=== PATIENT | female | born 2000 | race Caucasian/White ===

== ENCOUNTER 2024-08-21 23:53 | Emergency (ER) | payer MEDICAID, SELFPAY ==
--- OUTSIDE RECORDS SUMMARY | 2024-08-10 20:32 | XMS_ITS | Encounter Summary ---
Author Organization [facility] tem Address [id number] [address] [place] [address] Care Team Providers Care Industrial Management Teacher Name Role Phone Ruth Cody APRN-FUSING LINE INSPECTOR Primary Care Provider + Reason for Visit * Reason Comments Chest Pain Encounter Details Date Type Department Care Team ([facility] st Contact Info) Description 08/10/2024 8:32 PM EDT - 08/10/2024 10:17 PM EDT Emergency [facility] - Emergency [address] [place] [address] Stormy Solano, DO [address] [place] [address] Chest pain, unspecified type (Primary Dx) Discharge Disposition: Home Social History Tobacco Use Types Packs/Day Years Used Date Smoking Tobacco: Never Smokeless Tobacco: Never Alcohol Use Standard Drinks/Week Comments No 0 (1 standard drink = 0.6 oz pur e alcohol) [facility] Utilities Answer Date Recorded In the past 12 months has th e [employer], gas, oil, or water [employer] threatened to shut off services in your home? No 06/28/2024 Overall Financial Resource Strain (CARDIA) Answe r Date Recorded How hard is it for you to pa y for the very basics like food, housing, medical care, and heating? Not hard at all 12/05/2023 PHQ-2 Answer Date Recorded Total Score 0 02/07/2024 PRAPARE - Transportation Answer Date Re corded In the past 12 months, has l ack of transportation kept you from medical appointments or from getting medications? No 06/18 In the past 12 months, has l ack of transportation kept you from meetings, work, or from getting things needed for daily living? No 06/28/2024 Blanca Depression Scale Answer Date Recorded Blanca Depression Scale Total 9 12/05/2023 The thought of harming myself has occurred to me . Never 12/05/2023 Housing Instability Answer Date Recorde d Are you worried or concerned that in the next two months you may not have stable housing that you own, rent or stay in as a part of a household? No 06/28/2024 Childcare Answer Date Recorded Do problems getting child ca re make it difficult for you to work or study? No 12/05/2023 Employment Answer Date Recorded Employment Unknown 07/30/2018 Hunger Screening Answer Date Recorded Within the past 12 months we worried whether our food would run out before we got money to buy more. Never True 07/12/2024 Within the past 12 months th e food we bought just didn't last and we didn't have money to get more. Never True 07/12/2024 Purpose - Life Answer Date Recorded Purpose and direction in life Unknown Comments No Sex and Gender Information Value Date Recorded Sex Assigned at Female 03/27/2023 1:37 PM EST Legal Sex Female 12:02 PM EDT Gender Identity Female 03/27/2023 1:37 PM EST Sexual Orientation Not on file documented as of this encounter Last Filed Vital Signs Vital Sign Reading Time Taken Comments Blood Pressure 104/67 08/10/2024 9:45 PM EDT Pulse 85 08/10/2024 9:45 PM EDT Temperature 37.1 C (98.7 F) 08/10/2024 8:36 PM EDT Respiratory Rate 12 08/10/2024 9:45 PM EDT Oxygen Saturation 98% 08/10/2024 9:45 PM EDT Inhaled Oxygen Concentration - - Weight 86.2 kg (190 lb) 08/10/2024 8:36 PM EDT Height 162.6 cm (5' 4 ) 08/10/2024 8:36 PM EDT Body Mass Index 32.61 08/10/2024 8:36 PM EDT documented in this encounter Discharge Instructions * Discharge Instructions* Jessie Christopher APRN-FUSING LINE INSPECTOR - 08/10/2024 9:58 PM EDT Tylenol or ibuprofen for pain Follow-up with primary care provider To ER immediately for new worse or worrisome concerns * Attachments The following attachments cannot be sent through Care Everywhere. * Chest pain in adults – ED discharge instructions (Czech) * Chest pain (Czech) documented in this encounter Medications at Time of Discharge acetaminophen (TYLENOL EXTRA STRENGTH) 500 mg tablet Take 2 tablets (1,000 mg total) by mouth every 6 (six) hours as needed for pain. 30 tablet 03/06/2023 documented as of this encounter ED Notes * Stormy Solano DO - 08/10/2024 9:31 PM EDT Images from the original note were not included. [facility] Pt Name: Belem Jeter Birthdate: 2000 Chief Complaint: Chief Complaint Patient presents with Chest Pain History of Present Illness: Patient here for evaluation of chest pain. This has been going on for the last 2 days. It started on the left anterior chest but it was moved to the right in his has been present for at least 2 days.She describes it as a sharp pressure pain it has been coming and going. She feels it radiating to her shoulder blade and into her right ribs. Nothing seems to make it better or worse. She does endorse some shortness of breath. No dizziness or lightheadedness. No nausea or vomiting. No numbness tingling or weakness. She denies any possibility of . She was not on control. She did have a miscarriage about a month ago in his following up with OB regarding this. No previous history ofPE or DVT. No recent travel or surgeries. She denies any major medical problems Past Medical History: Past Medical History: Diagnosis Date ADHD (attention deficit hyperactivity disorder) Anemia Anxiety Depression Gestational hypertension Preeclampsia Visual impairment Past Surgical History: Past Surgical History: Procedure Laterality Date ANKLE SURGERY Left torn ligament, unsure if hardware in place COLONOSCOPY Family History: Family History Problem Relation Age of Onset Drug abuse Mother Hearing loss Mother Breast cancer Neg Hx Cancer Neg Hx Colon cancer Neg Hx Diabetes Neg Hx Hypertension Neg Hx Ovarian cancer Neg Hx Stroke Neg Hx Social History: Social History Socioeconomic History Marital status: Significant Other Tobacco Use Smoking status: Never Smokeless tobacco: Never Vaping Use Vaping status: Never Used Substance and Sexual Activity Alcohol use: No Drug use: No Sexual activity: Not Currently Partners: Male control/protection: None Social Drivers of Health Financial Resource Strain: Low Risk (12/05/2023) Overall Financial Resource Strain (CARDIA) Difficulty of Paying Living Expenses: Not hard at all Food Insecurity: No Food Insecurity (07/12/2024) Hunger Screening Food Insecurity - Worry: Never True Food Insecurity - Inability: Never True Transportation Needs: No Transportation Needs (06/28/2024) PRAPARE - Transportation Lack of Transportation (Medical): No Lack of Transportation (Non-Medical): No Interpersonal Safety: Not At Risk (06/28/2024) Humiliation, Afraid, Rape, and Kick questionnaire Fear of Current or Ex-Partner: No Emotionally Abused: No Physically Abused: No Sexually Abused: No Housing Instability: Low Risk (06/28/2024) Housing Instability Housing Instability: No Review of Systems: Review of Systems Physical Exam: ED Triage Vitals [08/10/242035] Temp Heart Rate Resp BP SpO2 37.1 °C (98.7 °F) 70 20 121/62 100 % Temp src Heart Rate Source Patient Position BP Location FiO2 (%) -- -- -- -- -- Vitals: 08/10/24203508/10/24212908/10/242144 BP: 121/62 105/74 104/67 Temp: 37.1 °C (98.7 °F) Pulse: 70 82 85 Resp: 20 10 12 SpO2: 100% 98% 98% Height: 162.6 cm (5' 4 ) Weight: 86.2 kg (190 lb) 98 Physical Exam Vitals reviewed. HENT: Head: Normocephalic and atraumatic. Eyes: Conjunctiva/sclera: Conjunctivae normal. Cardiovascular: Rate and Rhythm: Normal rate. Pulmonary: Effort: Pulmonary effort is normal. Breath sounds: Normal breath sounds. Comments: Tenderness to the sternal and right anterior chest wall. No rash Chest: Chest wall: Tenderness present. Abdominal: General: There is no distension. Palpations: Abdomen is soft. Musculoskeletal: General: Normal range of motion. Cervical back: Normal range of motion and neck supple. Right lower leg: No edema. Left lower leg: No edema. Skin: General: Skin is warm and dry. Neurological: General: No focal deficit present. Mental Status: She is alert and oriented to person, place, and time. GCS: GCS eye subscore is 4. GCS verbal subscore is 5. GCS motor subscore is 6. Procedure: Procedures Re-evaluation: Re-Evaluation Medical Decision Making Patient here for complaints of chest pain for the past couple of days. She was reproducible chest wall tenderness. Normal vital signs no hypoxia tachycardia tachypnea. D-dimer troponin all within normal limits. Chest x-ray shows no acute process. Patient was advised on [id number] medications for pain. I advised her to follow up with the primary doctor but return for new worse or worrisome concerns. Patient verbalized understanding in his agreeable to plan of care Amount and/or Complexity of Data Reviewed Labs: ordered. Details: Labs notable for: dimer <150 Radiology: ordered. Details: Imaging was independently viewed and is notable for no pneumonia. However, pending official radiologist read. ECG/medicine tests: ordered. Risk OTC drugs. Prescription drug management. ED Course: ED Course as of 08/15/24 1131 SatAug 10, [id number] I updated the patient and her family member at the bedside about her test results. She had mention a possible outpatient gallbladder ultrasound. She reports that she does not have a primary careprovider's so she was not sure how she would get the results. I told her I would be happy to write her an ultrasound but she plans to follow-up with her rug washer. She prefers to see if her rug washer will order the ultrasound for her. I advised her to follow-up with primary care provider but return for new worse or worrisome concerns in the meantime [RK] ED Course User Index [RK] Jessie Christopher APRN-FUSING LINE INSPECTOR Clinical Impressions as of 08/15/24 1131 Chest pain, unspecified type . ED Disposition ED Disposition Discharge Date/Time SatAug 10, 2024 10:10 PM Comment At the time of discharge, the plan has been discussed with the patient regarding the diagnosis and prognosis. All questions have been answered. Verbal discharge instructions were discussed with the patient. The patient has been advised to follow up w ith their Primary Care Provider as needed. The patient was also instructed to return to the ED if their symptoms change, worsen, new symptoms arise or if they have any additional concerns. Shared/Split Visit 21:54 EDT John Alcantar), scribed for and in the presence of: Dr. Solano who performed the above service. IDr. Solano personally performed a [id number] diagnostic evaluation on this patient. I personally made and approved the management plan for this patient and take responsibility for the patient management. Additional Notes/Findings: Belem Jeter is a 24 y.o. female presenting to the ED for chief complaint of HPI: Physical exam findings as follows: Constitutional: Awake and alert; no acute distress HENT: Normocephalic and atraumatic; no congestion, throat clear and non- erythematous; external earsnormal Eyes: Conjunctiva unremarkable; EOMI, PERRLA Cardiovascular: Heart rate regular; normal cardiac sounds Pulmonary: Easy work of breathing, speaking in full sentences; clear to auscultation bilaterally Abdominal: Flat and non-distended; normal bowel sounds; no tenderness to palpation Skin: Warm and dry; <2 sec cap refill Musculoskeletal: Moving all extremities spontaneously; 5/5 strength bilaterally Neuro: GCS 15; No focal deficits; no sensory deficits Please note that portions of this note were completed with a voice recognition program. Efforts were made to edit the dictations but occasionally words are mis-transcribed. GIANNA Jimenez 08/10/243 GIANNA Jimenez 08/10/24 215 John Hogan 08/10/24 215 GIANNA Jimenez 08/10/24 221 GIANNA Jimenez 08/10/24 221 Stormy Solano, 08/15/24 1131 * Tiffany Vernon RN - 08/10/2024 8:34 PM EDT Chest pain x2 days documented in this encounter Plan of Treatment Upcoming Encounters Date Type Department Care Team (Late st Contact Info) Description 10/01/2024 1:00 PM EDT Office Visit [facility] - Family Medicine [address] [place] [address] Toña Jackson APRN-FUSING LINE INSPECTOR [address] [place] [address] documented as of this encounter Procedures Procedure Name Priority Date/Time Associated Diagnosis Comments TROP I, HIGH SENSITIVITY 1 HOUR STAT 08/10/2024 10:07 PM EDT XR CHEST 1 VW STAT 08/10/2024 9:20 PM EDT TROPONIN I, HIGH SENSITIVITY 0 HOUR STAT 08/10/2024 9:00 PM EDT TROPONIN I, HIGH SENSITIVITY 0 HOUR STAT 08/10/2024 9:00 PM EDT CBC WITH AUTO DIFFERENTIAL STAT 08/10/2024 9:00 PM EDT D-DIMER STAT 08/10/2024 9:00 PM EDT LIPASE STAT 08/10/2024 9:00 PM EDT COMPREHENSIVE METABOLIC PANEL STAT 08/10/2024 9:00 PM EDT ECG 12-LEAD STAT 08/10/2024 8:38 PM EDT documented in this encounter Results * Troponin I, High Sensitivity 1 Hour (08/10/2024 10:07 PM EDT) TROPONIN I, HIGH SENSITIVITY <2 <16 ng/L 08/10/2024 10:46 PM EDT [facility] Blood Venous blood / Unknown 08/10/2024 10:07 PM EDT 08/10/2024 10:09 PM EDT Jessie Christopher APRN-FUSING LINE INSPECTOR LAB BLOOD ORDERABLES Final Result [facility] [address] [place] [address], [place] * X-ray chest 1 view (08/10/2024 9:20 PM EDT) Anatomical Region Laterality Modality Body, Chest N/A Computed Radiogr aphy 08/10/2024 9:27 PM EDT Narrative 08/10/2024 9:28 PM EDT STUDY: XR CHEST 1 VW INDICATION: chest pain. COMPARISON: 12/03/2023 FINDINGS/IMPRESSION: * No acute cardiopulmonary process, by radiograph. Finalized by Chauncey Velasquez on 08/10/2024 9:28 PM Procedure Note Chauncey Velasquez MD - 08/10/2024 STUDY: XR CHEST 1 VW INDICATION: chest pain. COMPARISON: 12/03/2023 FINDINGS/IMPRESSION: * No acute cardiopulmonary process, by radiograph. Finalized by Chauncey Velasquez on 08/10/2024 9:28 PM Jessie Christopher APRN-FUSING LINE INSPECTOR IMG DIAGNOSTIC IMAGIN G ORDERABLES Final Result * Troponin I, High Sensitivity 0 Hour (08/10/2024 9:00 PM EDT) TROPONIN I, HIGH SENSITIVITY <2 <16 ng/L 08/10/2024 10:02 PM EDT [facility] Blood Venous blood / Unknown 08/10/2024 9:00 PM EDT 08/10/2024 9:29 PM EDT Jessie Christopher MUD WORKER-FUSING LINE INSPECTOR LAB BLOOD ORDERABLES Final Result Performing Organization Address [facility] Co de Phone Number [address] [place] [address], [place] * D-Dimer (08/10/2024 9:00 PM EDT) D DIMER <150 1 - 255 ug/mL 08/10/2024 9:50 PM EDT [facility] Comment:Results <255 ng/mL D DU: The presensence of a VTE can safely be excluded with a negative D-Dimer result and Wells score. A negative result doesn't exclude the possibility of DIC. The test should be repeated along with other diagnostic tests if the patient's symptoms persist or worsen. Blood Venous blood / Unknown 08/10/2024 9:00 PM EDT 08/10/2024 9:29 PM EDT Jessie Christopher APRN-[facility] LAB BLOOD ORDERABLES Final Result Performing Organization Address [facility] Co de Phone Number [address] [place] [address], [place] * Lipase (08/10/2024 9:00 PM EDT) LIPASE 38 17 - 40 U/L 08/10/2024 10:15 PM EDT [facility] Blood Venous blood / Unknown 08/10/2024 9:00 PM EDT 08/10/2024 9:29 PM EDT Jessie Christopher MUD WORKER-[facility] LAB BLOOD ORDERABLES Final Result Performing Organization Address City/[facility] Co de Phone Number [address] [place] [address], [place] * (ABNORMAL) Comprehensive metabolic panel (08/10/2024 9:00 PM EDT) SODIUM 140 134 - 146 mmol/L 08/10/2024 9:53 PM EDT [facility] POTASSIUM 3.4(L) 3.5 - 5.0 mmol/L 08/10/2024 9:53 PM EDT [facility] CHLORIDE 105 98 - 109 mmol/L 08/10/2024 9:53 PM EDT [facility] CARBON DIOXIDE 26 22 - 32 mmol/L 08/10/2024 9:53 PM EDT [facility] ANION GAP 9 5 - 15 mmol/L 08/10/2024 9:53 PM EDT [facility] BLOOD UREA NITROGEN 14 5 - 23 mg/dL 08/10/2024 9:53 PM EDT [facility] CREATININE 0.62 0.40 - 1.00 mg/dL 08/10/2024 9:53 PM EDT [facility] Comment:METHOD TRACEABLE TO IDMS STANDARD GLUCOSE 101(H) 65 - 99 mg/dL 08/10/2024 9:53 PM EDT [facility] CALCIUM 9.2 8.5 - 10.5 mg/dL 08/10/2024 9:53 PM EDT [facility] TOTAL PROTEIN 7.0 6.0 - 8.0 g/dL 08/10/2024 9:53 PM EDT [facility] ALBUMIN 4.0 3.2 - 5.3 g/dL 08/10/2024 9:53 PM EDT [facility] ALKALINE PHOSPHATASE 77 39 - 130 U/L 08/10/2024 9:53 PM EDT [facility] AST 16 <=41 U/L 08/10/2024 9:53 PM EDT [facility] ALT 13 <=31 U/L 08/10/2024 9:53 PM EDT [facility] BILIRUBIN,TOTAL 0.5 0.3 - 1.2 mg/dL 08/10/2024 9:53 PM EDT [facility] EGFR Non-Race Dependent >90 >=60 ml/min/1.7 3sq.m 08/10/2024 9:53 PM EDT [facility] Comment: eGFR not reported due to non-numeric value for Creatinine. Reported eGFR is based on the CKD-EPI 2020 equation that does not use a race coefficient. Blood Venous blood / Unknown 08/10/2024 9:00 PM EDT 08/10/2024 9:29 PM EDT us Jessie Christopher MUD WORKER-FUSING LINE INSPECTOR LAB BLOOD ORDERABLES Final Result [facility] [address] [place] [address], * (ABNORMAL) CBC auto differential (08/10/2024 9:00 PM EDT) WBC 7.7 4 - 11 x10E9/L 08/10/2024 9:49 PM EDT [facility] RBC Count 3.72(L) 3.8 - 5.2 X10E12/L 08/10/2024 9:49 PM EDT [facility] Hemoglobin 9.8(L) 11.7 - 15.5 g/dL 08/10/2024 9:49 PM EDT [facility] Hematocrit 29.5(L) 35 - 47 % 08/10/2024 9:49 PM EDT [facility] MCV 79(L) 80 - 100 fL 08/10/2024 9:49 PM EDT [facility] MCH 26.5(L) 27 - 34 pg 08/10/2024 9:49 PM EDT [facility] MCHC 33.3 32 - 36 g/dL 08/10/2024 9:49 PM EDT [facility] RDW 14.8 11.5 - 15 % 08/10/2024 9:49 PM EDT [facility] Platelet Count 331 150 - 450 X10E9/L 08/10/2024 9:49 PM EDT [facility] MPV 7.8 7 - 12 fL 08/10/2024 9:49 PM EDT [facility] Neutrophils % 63.6 % 08/10/2024 9:49 PM EDT [facility] Lymphocytes % 30.0 % 08/10/2024 9:49 PM EDT [facility] Monocytes % 4.7 % 08/10/2024 9:49 PM EDT [facility] Eosinophils % 1.2 % 08/10/2024 9:49 PM EDT [facility] Basophils % 0.5 % 08/10/2024 9:49 PM EDT [facility] Neutrophils Absolute (A) 4.9 1.5 - 6.6 10*3/uL 08/10/2024 9:49 PM EDT [facility] Lymphocytes Absolute 2.3 1.0 - 3.5 10*3/uL 08/10/2024 9:49 PM EDT [facility] Monocytes Absolute 0.4 0.0 - 0.9 10*3/uL 08/10/2024 9:49 PM EDT [facility] Eosinophils Absolute 0.1 0.0 - 0.4 10*3/uL 08/10/2024 9:49 PM EDT [facility] Basophils Absolute 0.0 0.0 - 0.2 10*3/uL 08/10/2024 9:49 PM EDT [facility] Differential Type AUTOMATED DIFFERENTIAL 08/10/2024 9:49 PM EDT [facility] Blood Venous blood / Unknown 08/10/2024 9:00 PM EDT 08/10/2024 9:29 PM EDT us Jessie Christopher MUD WORKER-FUSING LINE INSPECTOR LAB BLOOD ORDERABLES Final Result [facility] [address] [place] [address], [place] * ECG 12 lead (08/10/2024 8:38 PM EDT) 08/10/2024 8:38 PM EDT Jessie Bia Ashwin YANDEL-SANTI ECG ORDERABLES Final Result [facility] documented in this encounter Visit Diagnoses Diagnosis Chest pain, unspecified type- Primary documented in this encounter Administered Medications Inactive Administered Medications - up to 3 most recent administrations Medication Order MAR Action Action Date Dose Rate Site sodium chloride 0.9 % flush 3 mL 3 mL, intravenous, As needed, line care, before and after each intermittent use, Starting on Sat08/10/24 at 2051 documented in this encounter Active and Recently Administered Medications Times are shown in EDT. Scheduled Medication Order 08/08/2024 08/09/2024 08/10/2024 potassium chloride (KLOR-CON M 20) CR tablet 40 mEq 40 mEq, oral, Once, On Sat08/10/24 at 2155, For 1 dose, Do not crush or chew. 2155 (Due) PRN Medication Order 08/08/2024 08/09/2024 08/10/2024 sodium chloride 0.9 % flush 3 mL 3 mL, intravenous, As needed, line care, before and after each intermittent use, Starting on Sat08/10/24 at 2051 documented in this encounter Additional Health Concerns Assessment Noted Time PHQ-9 Depression Total Score: 0 02/07/20 2:42 PM EST documented as of this encounter Care Teams Industrial Management Teacher Relationship Specialty Start Date End Date Ruth Cody, YANDEL-SANTI [address] [place] [address] PCP - General Obstetrics & Gynecology 12/03/23 documented as of this encounter
[2024-08-22 00:09] VITALS: BP 113/83; PULSE 78; TEMP 36.8; O2SAT 100; BMI 32.6
--- OUTSIDE RECORDS SUMMARY | 2024-08-22 00:10 | XMS_ITS | Patient Health Record ---
Author Organization [facility] vices Address [address] [place], [place] [id number] Care Team Providers Care Heating And Air Conditioning Mechanic Name Role Phone Dami Alvares Unavailable [phone] Reason For Referral No Information Immunizations Vaccine Route Administration Date Status Comme nts *DTaP (Infanrix)-VFC IM Intramuscular 03/12/2012 Administe red Status:Complete ,Reason:Given or N/A ,20 min check without reaction *Hep A, ped/adol, 2 dose-VFC IM Intramuscular 04/25/2010 Administered Status:Complete ,Reason:Given or N/A *Hep A, ped/adol, 2 dose-VFC IM Intramuscular 11/15/2011 Administered Status:Complete ,Reason:Given or N/A HPV (human papillomavirus), quadrivalent, 3 dose schedule IM Intramuscular 04/25/2010 Administered Status:Complete ,Reason:Given or N/A HPV (human papillomavirus), quadrivalent, 3 dose schedule IM Intramuscular 03/12/2012 Administered Status:Complete ,Reason:Given or N/A ,20 min check without reaction Influenza (split), 3 yrs and above IM Intramuscular 11/15/2011 Administered Status:Complete ,Reason:Given or N/A Meningococcal MCV4P IM Intramuscular 04/25/2010 Administer ed Status:Complete ,Reason:Given or N/A ,Pond Scaler: [employer] Problems Problem Type SNOMED Code ICD Code Onset Dates Problem Status W/U Status Risk Notes Problem Sensorineural hearing loss of bilateral ears (disorder) (849785892) Sensorineural hearing loss, bilateral (H90.3) Active confirmed Comment:Without apparent etiology. Will REFER for audiogram and then ENT, Dr Thayer, if available., Problem Irritable bowel syndrome (18668251) IBS (irritable bowel syndrome) (K58.9) Active confirmed Comment:Doiing better with the bentyl and fiber. continue., Problem Gastric catarrh (9629802) Gastric catarrh (K29.70) Active confirmed Comment:1)Mild gastritis. 2)Maintain hydration. 3)No Ibuprofen. 4)Call in 2 days for update. 5)FU in case of persisting problems in a week. Mom and child verbalized understanding., Description:Gas tritis Problem Migraine without aura (89197498) Migraine without aura (G43.009) Active confirmed Comment:-Has been having unilateral headaches characteristic of migraines -Has been taking fioricet rx by Dr. Alvares; help mildy but doesnt take away -Still having episodes daily -No identified triggers -D/t almost daily to multipe episodes week will try prophylactic treatment -Will try trial of propranol t.i.d. for migraine prophylaxis; discussed safe usage and possible ADRs -If symptoms worsen or do not improve -Can take with motrin; no abnormal neuro findings -F/u in 3 weeks or sooner if symptoms worsen or do not improve, pt and mother verified understanding, Problem Crohn's disease of large bowel (4184569) Crohn's colitis (K50.10) Active confirmed Comment:-Pt missed appt with GI -CT suggestive of Crohns disease with thickening of transverse colon. -Did not notice any improvement with mesalamine; -Will attempt trial of bentyla and prednisone; discussed plan with patient and mother -Keep appt with GI on 03/23/15 -Mom verbalized understanding, agrees with plan,Story:NO elevated WBC's in ER x2 maintaining weight, no evidence of dehydration, Problem Sensory neuropathy (28690258) Sensory neuropathy (G62.9) Active confirmed Comment:Lateral femoral cutaneous nerve, likely due to tight clothing or ''sleeping on it wrong''. Reassured. Loose fitting pants/belt. follow up 6 weeks, sooner if worse or if other areas develop., Problem Acquired hallux valgus (50834306) HAV (hallux abducto valgus) (M20.10) Active confirmed Problem Cyst of ovary (30694508) Cyst of ovary (N83.20) Active confirmed Comment:Cycle suppression using continous OCPs. NSAIDS as needed,Story:2. 5 cm left ovarian cyst on CT scan 03/10/2011 On-off left pelvic pain History of irregular menses since menarche.,Descr iption:Ovarian cyst Plan Of Treatment No Information Insurance Providers Payer Name Payer Address Payer Phone Subscriber Number Group Number Insured Name Patient Relationship to Insured Coverage Start Date Coverage End Date [employer] [address] [place] [address] [id number] Belem Jeter Self - patient is the insured 6 [employer] [address] [place] [address] [id number] Belem Jeter Self - patient is the insured 9 Medicaid CFC after [employer] [address] [place] [address] [id number] Belem Jeter Self - patient is the insured 9 [employer] CFC after [employer] [address] [place], [place] [id number] Belem Jeter Self - patient is the insured 9 Medical (General) History Surgical History Surgery Date(Month/Year) No previous surgeries, ProblemStatus: Ac tive, None, ProblemStatus: Inactive, 2011-10-21 7
--- OUTSIDE RECORDS SUMMARY | 2024-08-22 00:10 | XMS_ITS | Clinical Summary ---
Author Organization [facility] Address [address] [place] [address] Care Team Providers Care Wire Splicer Name Role Phone Unavailable Primary Care Provider Unavailabl e Allergies Active Allergy Reactions Criticality Noted Date Comments Penicillins Rash Low 03/29/2015 Medications Pediatric Multivit-Mineral s-C (MULTIVITAMINS PEDIATRIC PO) Take 1 tablet by mouth daily Active naproxen (NAPROSYN) 500 MG tablet Take 1 tablet by mouth 2 times daily (with meals) 60 tablet 12/21/2017 Active ferrous sulfate 325 (65 Fe) MG tablet Take 1 tablet by mouth 2 times daily (with meals) 30 tablet 12/21/2017 Active sennosides-docus ate sodium (SENOKOT-S) 8.6-50 MG tablet Take 1 tablet by mouth daily 30 tablet 12/22/2017 Active Active Problems Patient Care Coordination No te Formatting of this note migh t be different from the original. Fecal calprotectin not collected for Peds GI. Reminder letter with copy of original order sent to parent 06/13/15. cms Problem Noted Date Diagnosed Date Proteinuria in , delivered 12/22/2017 Late transfer of care 12/20/2017 Rh+/RNI/GBS neg 12/20/2017 High risk teen 12/20/2017 12/20/17 F APG 8/9 Wt 7#6 12/20/2017 FH of congenital hearing loss 11/27/2017 Overview (12/20/2017): Overview: Patient's mother and all of her mother's siblings are deaf. Patient has no siblings. Rubella non-immune status, antepartum 10/31/2017 Overview (12/21/2017): Overview: Offer rubella immediately . MMR given 12/21/17 Anemia 09/17/2017 Overview (12/20/2017): Overview: Rx for iron sent Hx of acute cystitis 09/16/2017 Hx Migraines 08/07/2017 Overview (12/20/2017): Overview: Was taking a headache medication prescribed by Dr. Ahn, but she stopped taking it because she couldn't keep it down. Patient states migraines are not as bad now. Will let us know if she needs meds. Encouraged tylenol, benadryl, and small amount of caffeine if needed. 40 weeks gestation of Uterine contractions during Immunizations Immunization Administration Dates Next Due Influenza, Quadv, 6 mo and o lder, IM, PF (Flulaval, Fluarix) 12/22/2017 MMR, PRIORIX, M-M-R II, (age 12m+), SC, 0.5mL Family History Medical History Relation Name Comments Heart Disease Father Other Mother Cystic Fibrosis Other Migraines Other Other Other Gallstones,Hear ing Impaired, Heart Murmur Relation Name Status Comments Father Mother Alive Other Social History Tobacco Use Types Packs/Day Years Used Date Smoking Tobacco: Never Smokeless Tobacco: Never Alcohol Use Standard Drinks/Week Comments No 0 (1 standard drink = 0.6 oz pur e alcohol) Comments No Sex and Gender Information Value Date Recorded Sex Assigned at Not on file Legal Sex Female 2:56 PM EST Gender Identity Not on file Sexual Orientation Not on file Last Filed Vital Signs Vital Sign Reading Time Taken Comments Blood Pressure 117/64 12/22/2017 1:55 PM EST Pulse 83 12/22/2017 1:55 PM EST Temperature 36.9 C (98.4 F) 12/22/2017 1:55 PM EST Respiratory Rate 16 12/22/2017 1:55 PM EST Oxygen Saturation 98% 12/20/2017 11:47 PM EDT Inhaled Oxygen Concentration - - Weight 92.5 kg (204 lb) 12/21/2017 12:34 AM EDT Height 162.6 cm (5' 4 ) 12/21/2017 12:34 AM EDT Body Mass Index 35.02 12/21/2017 12:34 AM EDT Plan of Treatment Not on file Insurance [employer] Advance Directives * Full Code (Latest Code Status on File) Date Activated Date Inactivated Comments 12/20/2017 10:58 PM 12/22/2017 9:26 PM * Full Code Date Activated Date Inactivated Comments 12/20/2017 8:45 PM 12/20/2017 10:58 PM * Full Code Date Activated Date Inactivated Comments 12/20/2017 1:23 AM 12/20/2017 4:31 AM
--- OUTSIDE RECORDS SUMMARY | 2024-08-22 00:11 | XMS_ITS | Encounter Summary ---
Author Organization [facility] Address [facility] [place] [id number] [address] [place] [address] Care Team Providers Care Bend Up Name Role Phone No Pcp, No Pcp Primary Care Provider Unavailabl e Encounter Details Date Type Department Care Team ([facility] Contact Info) Description 03/16/2024 Telephone [facility] Neu[facility] [address] [place] [phone] Henny Eldridge CMA Social History Tobacco Use Types Packs/Day Years Used Date Smoking Tobacco: Never Smokeless Tobacco: Never Alcohol Use Standard Drinks/Week Comments No 0 (1 standard drink = 0.6 oz pur e alcohol) [facility] Utilities Answer Date Recorded In the past 12 months has th e electric, gas, oil, or water company threatened to shut off services in your home? No 10/24/2023 Overall Financial Resource Strain (CARDIA) Answe r [...] medical appointments or from getting medications? No 06/2023 In the past 12 months, has l ack of transportation kept you from meetings, work, or from getting things needed for daily living? No 10/24/2023 [place] Depression Scale Answer Date Recorded [place] Depression Scale Total 9 12/05/2023 The thought of harming myself has occurred to me . Never 12/05/2023 Housing Instability Answer Date Recorde d Are you worried or concerned that in the next two months you may not have stable housing that you own, rent or stay in as a part of a household? No 10/24/2023 Childcare Answer Date Recorded Do problems getting child ca re make it difficult for you to work or study? No 12/05/2023 Employment Answer Date Recorded Employment Unknown 07/30/2018 Hunger Screening Answer Date Recorded Within the past 12 months we worried whether our food would run out before we got money to buy more. Never True 03/17/2024 Within the past 12 months th e food we bought just didn't last and we didn't have money to get more. Never True 03/17/2024 Purpose - Life Answer Date Recorded Purpose and direction in life Unknown Comments No Sex and Gender Information Value Date Recorded Sex Assigned at Female 03/27/2023 1:37 PM EST Legal Sex Female 12:02 PM EDT Gender Identity Female 03/27/2023 1:37 PM EST Sexual Orientation Not on file documented as of this encounter Miscellaneous Notes * Telephone Encounter - Henny Eldridge CMA - 03/16/2024 1:26 PM EST ERROR documented in this encounter Plan of Treatment Upcoming Encounters Date Type Department Care Team (Late st Contact Info) Description 10/01/2024 1:00 PM EDT Office Visit [facility] Internal Medicine - Family Medicine [address] [place] [phone] Toña Jackson APRN-SALVAGE LABORER [address] [place] [address] documented as of this encounter Visit Diagnoses Not on filedocumented in this encounter Additional Health Concerns Assessment Noted Time PHQ-9 Depression Total Score: 0 02/07/20 24 2:42 PM EST documented as of this encounter Care Teams Bend Up Relationship Specialty Start Date End Date No Pcp, [place] [address] PCP - General Family Medicine 08/12/24 documented as of this encounter
--- OUTSIDE RECORDS SUMMARY | 2024-08-22 00:11 | XMS_ITS | Encounter Summary ---
Author Organization [facility] Address [id number] [address] [place] [address] Care Team Providers Care Money Laundering Investigator Name Role Phone No Pcp, No Pcp Primary Care Provider Unavailabl e Encounter Details Date Type Department Care Team ([facility] Contact Info) Description 11/04/2020 Telephone [facility] [address] [place] [address] Elizabet Qiu Social History Tobacco Use Types Packs/Day Years Used Date Smoking Tobacco: Never Smokeless Tobacco: Never Alcohol Use Standard Drinks/Week Comments No 0 (1 standard drink = 0.6 oz pur e alcohol) PHQ-2 Answer Date Recorded Total Score 3 01/02/2018 Childcare Answer Date Recorded Childcare Unknown 07/30/2018 Employment Answer Date Recorded Employment Unknown 07/30/2018 Purpose - Life Answer Date Recorded Purpose and direction in life Unknown Comments Yes Sex and Gender Information Value Date Recorded Sex Assigned at Female 03/27/2023 1:37 PM EST Legal Sex Female 12:02 PM EDT Gender Identity Female 03/27/2023 1:37 PM EST Sexual Orientation Not on file COVID-19 Exposure Response Date Recorded In the last month, have you been in contact with someone who was confirmed or suspected to have Coronavirus / COVID-19? Yes 11/07/2020 4:27 PM EDT documented as of this encounter Miscellaneous Notes * Telephone Encounter - Elizabet Qiu - 11/04/2020 1:46 PM EDT CALLING TO RESCHEDULE MISSED APPT-LMOM 11/04/20 * Telephone Encounter - Elizabet Qiu - 11/04/2020 1:46 PM EDT LMOM 12/30/20 CALLED 02/01/21-VM FULL documented in this encounter Plan of Treatment Upcoming Encounters Date Type Department Care Team (Late st Contact Info) Description 10/01/2024 1:00 PM EDT Office Visit [facility] Internal Medicine - Family Medicine [address] [place] [address] Toña Jackson, HARP REGULATOR-LIGHT TECHNICIAN [address] [place] [address] documented as of this encounter Visit Diagnoses Not on filedocumented in this encounter Additional Health Concerns Infection Onset Date Last Indicated Resolved Time COVID-19 Positive 10/25/2020 10/25/2020 11/15/2020 11:13 PM EDT COVID-19 Rule-Out 06/16/2023 06/16/2023 06/16/2023 10:26 AM EDT Assessment Noted Time PHQ-9 Depression Total Score: 3 01/03/20 18 9:11 AM EST documented as of this encounter Care Teams Money Laundering Investigator Relationship Specialty Start Date End Date No [place]cp[place] [address] PCP - General Family Medicine 08/12/24 documented as of this encounter
--- OUTSIDE RECORDS SUMMARY | 2024-08-22 00:11 | XMS_ITS | Encounter Summary ---
Author Organization [facility] Address [facility] [place]-[id number] [address] [place] [address] Care Team Providers Care Accounts Receivable Collector Name Role Phone Ruth Cody APRN-DIRECTOR OF SEARCH ENGINE MARKETING Primary Care Provider + Encounter Details Date Type Department Care Team (Latest Contact Info) Description 08/10/2024 Travel Social History Tobacco Use Types Packs/Day Years Used Date Smoking Tobacco: Never Smokeless Tobacco: Never Alcohol Use Standard Drinks/Week Comments No 0 (1 standard drink = 0.6 oz pur e alcohol) [facility] Utilities Answer Date Recorded In the [...] things needed for daily living? No 06/28/2024 [place] Depression Scale Answer Date Recorded [place] Depression Scale Total 9 12/05/2023 The thought [...] on file documented as of this encounter Plan of Treatment Upcoming Encounters Date Type Department Care Team (Late st Contact Info) Description 10/01/2024 1:00 PM EDT Office Visit [facility] - Family Medicine [address] [place] [address] Toña Jackson, STABBER-DIRECTOR OF SEARCH ENGINE MARKETING [address] [place] [address] documented as of this encounter Visit Diagnoses Not on filedocumented in this encounter Additional Health Concerns Assessment Noted Time PHQ-9 Depression Total Score: 0 02/07/20 2:42 PM EST documented as of this encounter Care Teams Accounts Receivable Collector Relationship Specialty Start Date End Date Ruth Cody, STABBER-DIRECTOR OF SEARCH ENGINE MARKETING [address] [place] [address] PCP - General Obstetrics & Gynecology 12/03/23 documented as of this encounter
--- OUTSIDE RECORDS SUMMARY | 2024-08-22 00:11 | XMS_ITS | Clinical Summary ---
Author Organization [facility] Address [address] [place] [address] Care Team Providers Care Machine Clothing Man Name Role Phone Unavailable Primary Care Provider Unavailabl e Social History Tobacco Use Types Packs/Day Years Used Date Smoking Tobacco: Never Assessed Comments Unknown Sex and Gender Information Value Date Recorded Sex Assigned at Not on file Legal Sex Female 6:47 PM EDT Gender Identity Not on file Sexual Orientation Not on file Plan of Treatment Not on file
--- OUTSIDE RECORDS SUMMARY | 2024-08-22 00:11 | XMS_ITS | Clinical Summary ---
Author Organization [employer] tem Address [id number] [address] [place] [address] Care Team Providers Care Technology Sales Representative Name Role Phone No Pcp, No Pcp Primary Care Provider Unavailabl e Allergies Active Allergy Reactions Criticality Noted Date Comments Penicillins Facial Swelling 03/27/2024 Medications acetaminophen (TYLENOL EXTRA STRENGTH) 500 mg tablet Take 2 tablets (1,000 mg total) by mouth every 6 (six) hours as needed for pain. 30 tablet 03/06/2023 Active ferrous sulfate 325 (65 FE) MG tablet Take 1 tablet (325 mg total) by mouth in the morning and 1 tablet (325 mg total) in the evening. Take with meals. Do all this for 30 days. 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 Patient has no siblings. 07/26/2020- the patient indicated that the patient's mother and her siblings all had rubella and were felt to have hearing loss secondary to that issue. Patient denied a family history of congenital hearing loss. Resolved Problems Problem Noted Date Diagnosed Date Resolved Date (spontaneous vaginal delivery) 10/25/2023 06/29/2024 SPROM (prolonged spontaneous rupture of membranes) 10/24/2023 10/27/2023 Iron deficiency anemia of 08/08/2023 09/28/2023 macrosomia during preg sourav in second trimester 07/27/2023 09/28/2023 Overview (07/27/2023): Single intrauterine gestation with EFW at the 99th percentile. AC measures >99th percentile. Hx of macrosomia in infant i n prior , currently 07/18/2023 09/28/2023 Anemia affecting in third trimester 06/21/1910/27/2023 Overview (09/28/2023): S/p iron infusions 08/29, 09/01, 09/03, 09/0509/27/23 H/H 11.3/34.5, plts 262k, good response to IV iron Macrosomia affecting management of mother 06/19/2023 10/27/2023 Overview (09/28/2023): MFM growth US (07/25/23): EFW >99%tile, AC 99%tile MFM growth (09/02/23): EFW 85%tile, AC 92% Hx of preeclampsia, prior pr egnancy, currently 04/23/2023 10/27/2023 Nausea/vomiting in 04/23/2023 09/28/2023 Hx of macrosomia in i n prior , currently 04/23/2023 12/06/2023 Overview (04/23/2023): G2 weighed 4465 grams (9 pounds 13 ounces) COVID-19 affecting in third trimester 11/06/2020 04/23/2023 Overview (11/06/2020): + 10/25/2020 Treated with antibodies Labial irritation 08/18/2020 04/23/2023 Pyelonephritis affecting pre gnancy in second trimester 08/06/2020 04/23/2023 Overview (08/18/2020): F/U w/urology Renal US ordered Repeat urine culture in a month Depression affecting pregnan cy in second trimester, antepartum 07/26/2020 04/23/2023 H/O migraine during 07/26/2020 04/23/2023 Short interval between pregn ancies affecting , antepartum 05/12/2020 04/23/2023 Hx of depression, currently 01/30/2019 06/29/2024 Hx of acute pyelonephritis 11/07/2016 0 06/10/2019 Encounters Date Type Department Care Team Description 08/20/2024 Travel 08/20/2024 Telephone [facility] [address] [place] [address] Sara Quiroz, RN orders 08/11/2024 Orders Only [facility] Obstetrics/Gynecolo gy [address] [place] [address] Georgina Olivo CMA Does not have primary care provider (Primary Dx); SAB (spontaneous ) 08/10/2024 8:32 PM EDT - 08/10/2024 10:17 PM EDT Emergency [facility] - Emergency [address] [place] [address] Stormy Solano, Chest pain, unspecified type (Primary Dx) Discharge Disposition: Home 08/10/2024 Travel 07/28/2024 Refill [facility] Ob[facility]/Gynecolo gy [address] [place] [address] Lorrie López, ER NURSE-CNM 07/12/2024 7:43 PM EDT - 07/12/2024 11:10 PM EDT Emergency [facility] - Emergency [address] [place] [address] Stormy Solano, Abdominal pain, unspecified abdominal location (Primary Dx); Miscarriage Discharge Disposition: Home 07/12/2024 Travel 07/07/2024 Telephone [facility] Obstetrics/Gynecolo gy [address] [place] [address] Georgina Olivo CMA 07/03/2024 Telephone [facility] [address] [place] [address] Sara Quiroz, RN Headache 06/28/2024 4:30 PM EDT - 06/29/2024 1:42 PM EDT Hospital Encounter [facility] - [facility] [address] [place] [phone] Mayela Fierro MD Watson, Tanya L, Lorrie Arauz, ER NURSE-CNM Vagina bleeding (Primary Dx) Discharge Disposition: Home 06/28/2024 4:58 AM EDT - 06/28/2024 8:31 AM EDT Emergency [facility] - Emergency [address] [place] [phone] Parag Gasca DO Vaginal bleeding in (Primary Dx) Discharge Disposition: Home 06/28/2024 Travel from Last 3 Months Immunizations Immunization Administration Dates Next Due Influenza, Injectable, quadr ivalent (PF) 04/23/2023,11/19/2016 MMR 10/26/2023() Tdap 10/26/2023(Deferred: Other - Given in office this ),09/12/2023,12/07/2020(Deferr ed: - PATIENT STATES SHE HAD 3 YEARS AGO AFTER OF CHILD.),06/10/2019,10/03/2017 Varicella 10/26/2023(), 021(Deferred: Other - VARICELLA IMMUNE) Family History Medical History Relation Name Comments Drug abuse Mother Hearing loss Mother Breast cancer Neg Hx Cancer Neg Hx Colon cancer Neg Hx Diabetes Neg Hx Hypertension Neg Hx Ovarian cancer Neg Hx Stroke Neg Hx Relation Name Status Comments Mother Alive Hole in her b rain Social History Tobacco Use Types Packs/Day Years Used Date Smoking Tobacco: Never Smokeless Tobacco: Never Tobacco Cessation:Counseling Given: Not Answered Alcohol Use Standard Drinks/Week Comments No 0 (1 standard drink = 0.6 oz pur e alcohol) [facility] Utilities Answer Date Recorded In the [...] things needed for daily living? No 06/28/2024 Whitestone Depression Scale Answer Date Recorded Whitestone Depression Scale Total 9 12/05/2023 The thought [...] PM EST Sexual Orientation Not on file Last Filed [...] Mass Index 32.61 08/10/2024 8:36 PM EDT Plan of Treatment Upcoming Encounters Date Type Department Care Team (Late st Contact Info) Description 10/01/2024 1:00 PM EDT Office Visit [facility] Internal Medicine - Family Medicine [address] [place] [address] Toña Jackson, ER NURSE-DIGGING MACHINE OPERATOR [address] [place] [address] Health Maintenance Due Date Last Done Comments Adult BMI Follow Up Plan 2016 Influenza Vaccine 10/19/2024 04/23/2023, , 12/22/2017, Additional history exists Depression Screening 02/06/2025 02/07/2024, 12/05/19 24 Adult BMI Screening 08/10/2025 08/10/2024 Tobacco Screening 08/10/2025 08/10/2024 Pap Smear 04/22/2026 04/23/2023, 05/16/2020 DTaP,Tdap and Td Vaccines (1 0 - Td or Tdap) 09/11/2033 09/12/2023, 06/10/2019, 10/03/2017, Additional history exists Medical Devices Not on file Procedures Procedure Name Priority Date/Time Associated Diagnosis Comments HCG-BETA, SERUM Routine 08/20/2024 3:11 PM EDT Miscarriage HCG-BETA, SERUM Routine 08/12/2024 1:31 PM EDT SAB (spontaneous ) TROP I, HIGH SENSITIVITY 1 HOUR STAT 08/10/2024 10:07 PM EDT XR CHEST 1 VW STAT 08/10/2024 9:20 PM EDT TROPONIN I, HIGH SENSITIVITY 0 HOUR STAT 08/10/2024 9:00 PM EDT TROPONIN I, HIGH SENSITIVITY 0 HOUR STAT 08/10/2024 9:00 PM EDT D-DIMER STAT 08/10/2024 9:00 PM EDT LIPASE STAT 08/10/2024 9:00 PM EDT COMPREHENSIVE METABOLIC PANEL STAT 08/10/2024 9:00 PM EDT CBC WITH AUTO DIFFERENTIAL STAT 08/10/2024 9:00 PM EDT ECG 12-LEAD STAT 08/10/2024 8:[address] ABDOMEN AND PELVIS W CONT STAT 07/12/2024 8:37 PM EDT POCT , URINE (NUCG) Routine 07/12/2024 8:15 PM EDT POCT NURSING URINE MACROSCOPIC UA Routine 07/12/2024 8:13 PM EDT ER EXTRA URINE CULTURE STAT 07/12/2024 8:04 PM EDT ER EXTRA URINE STAT 07/12/2024 8:04 PM EDT BLUE TOP STAT 07/12/2024 7:53 PM EDT RAINBOW DRAW STAT 07/12/2024 7:53 PM EDT LACTATE W/ REFLEX STAT 07/12/2024 7:5 3 PM EDT COMPREHENSIVE METABOLIC PANEL STAT 07/12/2024 7:53 PM EDT CBC WITH AUTO DIFFERENTIAL STAT 07/12/2024 7:53 PM EDT HCG-BETA, SERUM STAT 07/12/2024 7:53 PM EDT CBC WITH AUTO DIFFERENTIAL Routine 06/29/2024 5:43 AM EDT CBC (NO DIFF) Routine 06/28/2024 11:41 PM EDT TRANSFUSE RED BLOOD CELLS Routine 06/28/2024 6:50 PM EDT EXTRA TUBES BLUE TOP Routine 06/28/2024 4:52 PM EDT TYPE AND SCREEN STAT 06/28/2024 4:52 PM EDT EXTRA TUBES Routine 06/28/2024 4:52 PM EDT HCG-BETA, SERUM STAT 06/28/2024 4:52 PM EDT COMPREHENSIVE METABOLIC PANEL STAT 06/28/2024 4:52 PM EDT CBC WITH AUTO DIFFERENTIAL STAT 06/28/2024 4:52 PM EDT CROSSMATCH RBC Routine 06/28/2024 4:30 PM EDT MICROSCOPIC URINE Routine 06/28/2024 7:4 8 AM EDT ER EXTRA URINE STAT 06/28/2024 7:48 AM EDT US PREG LESS THAN 14 WKS WITH TRANSVAGINAL STAT 06/28/2024 7:08 AM EDT APTT STAT 06/28/2024 5:12 AM EDT PROTIME & INR STAT 06/28/2024 5:12 AM EDT HCG-BETA, SERUM STAT 06/28/2024 5:12 AM EDT COMPREHENSIVE METABOLIC PANEL STAT 06/28/2024 5:12 AM EDT CBC WITH AUTO DIFFERENTIAL STAT 06/28/2024 5:12 AM EDT PAP SMEAR Routine 04/23/2023 5:03 AM EST Cervical smear, as part of routine gynecological examination from Last 3 Months or Most Recently Relevant to Health Maintenance Results * hCG, quantitative, (08/20/2024 3:11 PM EDT) Only the most recent of5 resultswithin the time period is included. SERUM B HCG,3RD I.S. 12 mIU/mL 08/20/2024 9:25 PM EDT [facility] Blood Venous blood / Unknown Venipuncture / Unknown 08/20/2024 3:11 PM EDT 08/20/2024 3:12 PM EDT Narrative [facility] - 08/20/2024 9:25 PM EDT WEEKS (SINCE LMP) MIU/mL 3 WEEKS 5 - 50 4 WEEKS 5 - 426 5 WEEKS 18 - 7,340 6 WEEKS 1,080 - 56,500 7-8 WEEKS 7,650 - 229,000 9-12 WEEKS 25,700 - 288,000 13-16 WEEKS 13,300 - 254,000 17-24 WEEKS 4,060 - 165,400 25-40 WEEKS 3,640 - 117,000 MALES AND NON- FEMALES - <5 MIU/mL This test has been FDA approved for use in only. Elevated levels are not necessarily diagnostic for trophoblastic or nontrophoblastic neoplasms. us Klever Pandya MD LAB BLOOD ORDERABLES Final Re sult [facility] [address] [place] [address], [place] [phone] * Troponin I, High Sensitivity 1 Hour (08/10/2024 10:07 PM EDT) TROPONIN I, HIGH SENSITIVITY <2 <16 ng/L 08/10/2024 10:46 PM EDT [facility] Blood Venous blood / Unknown 08/10/2024 10:07 PM EDT 08/10/2024 10:09 PM EDT Jessie Christopher APRN-DIGGING MACHINE OPERATOR LAB BLOOD ORDERABLES Final Result [facility] [address] [place] [address], [place] * X-ray chest 1 view (08/10/2024 [...] Velasquez on 08/10/2024 9:28 PM Jessie Christopher APRN-DIGGING MACHINE OPERATOR IMG DIAGNOSTIC IMAGIN G ORDERABLES Final Result * Troponin I, High Sensitivity 0 Hour (08/10/2024 9:00 PM EDT) TROPONIN I, HIGH SENSITIVITY <2 <16 ng/L 08/10/2024 10:02 PM EDT [facility] Blood Venous blood / Unknown 08/10/2024 9:00 PM EDT 08/10/2024 9:29 PM EDT us Jessie Dueñascosta ER NURSE-DIGGING MACHINE OPERATOR LAB BLOOD ORDERABLES Final Result [facility] [address] [place] [address], [place] * (ABNORMAL) CBC auto differential (08/10/2024 9:00 PM EDT) Only the most recent of5 resultswithin the time period is included. WBC 7.7 4 - 11 x10E9/L 08/10/2024 9:49 PM EDT [facility] RBC Count 3.72(L) 3.8 - 5.2 X10E12/L 08/10/2024 9:49 PM EDT [facility] Hemoglobin 9.8(L) 11.7 - 15.5 g/dL 08/10/2024 9:49 PM EDT [facility] Hematocrit 29.5(L) 35 - 47 % 08/10/2024 9:49 PM EDT [facility] MCV 79(L) 80 - 100 fL 08/10/2024 9:49 PM EDT [facility] MCH 26.5(L) 27 - 34 pg 08/10/2024 9:49 PM EDT [facility] MCHC 33.3 32 - 36 g/dL 08/10/2024 9:49 PM EDT [facility] RDW 14.8 11.5 - 15 % 08/10/2024 9:49 PM EDT [facility] Platelet Count 331 150 - 450 X10E9/L 08/10/2024 9:49 PM EDT [facility] MPV 7.8 7 - 12 fL 08/10/2024 9:49 PM EDT [facility] Neutrophils % 63.6 % 08/10/2024 9:49 PM EDT [facility] Lymphocytes % 30.0 % 08/10/2024 9:49 PM EDT [facility] Monocytes % 4.7 % 08/10/2024 9:49 PM EDT [facility] Eosinophils % 1.2 % 08/10/2024 9:49 PM EDT [facility] Basophils % 0.5 % 08/10/2024 9:49 PM EDT [facility] Neutrophils Absolute (A) 4.9 1.5 - 6.6 10*3/uL 08/10/2024 9:49 PM EDT [facility] Lymphocytes Absolute 2.3 1.0 - 3.5 10*3/uL 08/10/2024 9:49 PM EDT [facility] Monocytes Absolute 0.4 0.0 - 0.9 10*3/uL 08/10/2024 9:49 PM EDT [facility] Eosinophils Absolute 0.1 0.0 - 0.4 10*3/uL 08/10/2024 9:49 PM EDT [facility] Basophils Absolute 0.0 0.0 - 0.2 10*3/uL 08/10/2024 9:49 PM EDT [facility] Differential Type AUTOMATED DIFFERENTIAL 08/10/2024 9:49 PM EDT [facility] Blood Venous blood / Unknown 08/10/2024 9:00 PM EDT 08/10/2024 9:29 PM EDT us Jessie Christopher ER NURSE-DIGGING MACHINE OPERATOR LAB BLOOD ORDERABLES Final Result Performing Organization Address City/State/[facility] Co de Phone Number [facility] [address] [place] [address], * D-Dimer (08/10/2024 9:00 PM EDT) D DIMER <150 1 - 255 ug/mL 08/10/2024 9:50 PM EDT [facility] Comment:Results <255 ng/mL D DU: The presensence of a VTE can safely be excluded with a negative D-Dimer result and Wells score. A negative result doesn't exclude the possibility of DIC. The test should be repeated along with other diagnostic tests if the patient's symptoms persist or worsen. Blood Venous blood / Unknown 08/10/2024 9:00 PM EDT 08/10/2024 9:29 PM EDT Jessie Christopher ER NURSE-DIGGING MACHINE OPERATOR LAB BLOOD ORDERABLES Final Result Performing Organization Address City/[facility]/ZIP Co de Phone Number [address] [place] [address], [place] * Lipase (08/10/2024 9:00 PM EDT) LIPASE 38 17 - 40 U/L 08/10/2024 10:15 PM EDT [facility] Blood Venous blood / Unknown 08/10/2024 9:00 PM EDT 08/10/2024 9:29 PM EDT Jessie Christopher ER NURSE-DIGGING MACHINE OPERATOR LAB BLOOD ORDERABLES Final Result Performing Organization Address [facility] Co de Phone Number [address] [place] [address], [place] * (ABNORMAL) Comprehensive metabolic panel (08/10/2024 9:00 PM EDT) Only the most recent of4 resultswithin the time period is included. SODIUM 140 134 - 146 mmol/L 08/10/2024 9:53 PM EDT [facility] POTASSIUM 3.4(L) 3.5 - 5.0 mmol/L 08/10/2024 9:53 PM EDT [facility] CHLORIDE 105 98 - 109 mmol/L 08/10/2024 9:53 PM EDT [facility] CARBON DIOXIDE 26 22 - 32 mmol/L 08/10/2024 9:53 PM EDT [facility] ANION GAP 9 5 - 15 mmol/L 08/10/2024 9:53 PM EDT [facility] BLOOD UREA NITROGEN 14 5 - 23 mg/dL 08/10/2024 9:53 PM EDT [facility] CREATININE 0.62 0.40 - 1.00 mg/dL 08/10/2024 9:53 PM EDT [facility] Comment:METHOD TRACEABLE TO [facility] STANDARD GLUCOSE 101(H) 65 - 99 mg/dL 08/10/2024 9:53 PM EDT [facility] CALCIUM 9.2 8.5 - 10.5 mg/dL 08/10/2024 9:53 PM EDT [facility] TOTAL PROTEIN 7.0 6.0 - 8.0 g/dL 08/10/2024 9:53 PM EDT [facility] ALBUMIN 4.0 3.2 - 5.3 g/dL 08/10/2024 9:53 PM EDT [facility] ALKALINE PHOSPHATASE 77 39 - 130 U/L 08/10/2024 9:53 PM EDT [facility] AST 16 <=41 U/L 08/10/2024 9:53 PM EDT [facility] ALT 13 <=31 U/L 08/10/2024 9:53 PM EDT [facility] BILIRUBIN,TOTAL 0.5 0.3 - 1.2 mg/dL 08/10/2024 9:53 PM EDT [facility] EGFR Non-Race Dependent >90 >=60 ml/min/1.7 3sq.m 08/10/2024 9:53 PM EDT [facility] Comment: eGFR not reported due to non-numeric value for Creatinine. Reported eGFR is based on the CKD-EPI 2020 equation that does not use a race coefficient. Blood Venous blood / Unknown 08/10/2024 9:00 PM EDT 08/10/2024 9:29 PM EDT us Jessei Christopher ER NURSE-DIGGING MACHINE OPERATOR LAB BLOOD ORDERABLES Final Result [facility] [address] [place] [address], [place] * ECG 12 lead (08/10/2024 8:38 PM EDT) 08/10/2024 8:38 PM EDT Jessie Christopher ER NURSE-DIGGING MACHINE OPERATOR ECG ORDERABLES Final Result [facility] * CT abdomen and pelvis with contrast (07/12/2024 8:37 PM EDT) Anatomical Region Laterality Modality Body, Abdomen, Body Covera N/A Compu wilma Tomography 07/12/2024 9:36 PM EDT Narrative 07/12/2024 9:56 PM EDT CLINICAL INFORMATION: Fever, pain, cramping. Abdominal pain. Status post miscarriage and vacuum procedure on 06/29/2024 COMPARISON: CT abdomen and pelvis 02/05/2023. ultrasound 06/28/2024 TECHNIQUE: CT of the abdomen and pelvis with intravenous contrast.All CT scans at this facility use dose modulation, iterative reconstruction, and/or weight based dosing when appropriate to reduce radiation dose to as low as reasonably achievable. FINDINGS: LOWER CHEST: Subsegmental atelectasis lung bases. Otherwise lung bases unremarkable. No pleural or pericardial effusion. LIVER AND BILIARY: Noncirrhotic liver morphology. No enhancing hepatic lesion. Nondistended gallbladder is not well evaluated. No biliary ductal dilatation. PANCREAS: Unremarkable SPLEEN: Within normal limits. ADRENALS: Within normal limits. KIDNEYS, URETERS, AND BLADDER: Kidneys enhance symmetrically. No calculus or collecting system dilatation. No suspicious renal lesion. The urinary bladder is unremarkable. GI TRACT AND PERITONEUM: No drainable abscess. No significant free fluid. No free air. No acute bowel obstruction. No bowel wall thickening or inflammatory changes. The appendix is unremarkable. VASCULATURE: Nonaneurysmal abdominal aorta. The IVC is right-sided. Portal vein is patent. LYMPH NODES: Within normal limits. REPRODUCTIVE ORGANS: The uterus is not enlarged. No periuterine inflammatory changes. Mildly prominent right gonadal vein. Nonspecific amorphous hyperdensity within the endometrial cavity MUSCULOSKELETAL: No acute osseous abnormality. IMPRESSION: Hyperdensity in the endometrial canal. Postprocedural/perigestational hemorrhage, RPOC, or less likely vascular anomaly could have this appearance depending upon risk factors. Correlate with clinical context, laboratory assessment, ultrasound Approved by Resident Parag Roche MD on 07/12/2024 9:36 PM Kevin Alcantar MD have personally reviewed the image(s) and agree with and/or edited the report Finalized by Kevin Diaz MD on 07/12/2024 9:56 PM Procedure Note Kevin Diaz MD - 07/12/2024 CLINICAL INFORMATION: Fever, pain, cramping. Abdominal pain. Status post miscarriage and vacuumprocedure on 06/29/2024 COMPARISON: CT abdomen and pelvis 02/05/2023. ultrasound 06/28/2024 TECHNIQUE: CT of the abdomen and pelvis with intravenous contrast.All CT scans atthis facility use dose modulation, iterative reconstruction, and/or weightbased dosing when appropriate to reduce radiation dose to as low asreasonably achievable. FINDINGS: LOWER CHEST: Subsegmental atelectasis lung bases. Otherwise lung basesunremarkable. No pleural or pericardial effusion. LIVER AND BILIARY: Noncirrhotic liver morphology. No enhancing hepaticlesion. Nondistended gallbladder is not well evaluated. No biliary ductaldilatation. PANCREAS: Unremarkable SPLEEN: Within normal limits. ADRENALS: Within normal limits. KIDNEYS, URETERS, AND BLADDER: Kidneys enhance symmetrically. No calculusor collecting system dilatation. No suspicious renal lesion. The urinarybladder is unremarkable. GI TRACT AND PERITONEUM: No drainable abscess. No significant free fluid.No free air. No acute bowel obstruction. No bowel wall thickening orinflammatory changes. The appendix is unremarkable. VASCULATURE: Nonaneurysmal abdominal aorta. The IVC is right-sided. Portalvein is patent. LYMPH NODES: Within normal limits. REPRODUCTIVE ORGANS: The uterus is not enlarged. No periuterineinflammatory changes. Mildly prominent right gonadal vein. Nonspecific amorphous hyperdensity within the endometrial cavity MUSCULOSKELETAL: No acute osseous abnormality. IMPRESSION: Hyperdensity in the endometrial canal. Postprocedural/perigestationalhemorrhage, RPOC, or less likely vascular anomaly could have thisappearance depending upon risk factors. Correlate with clinical context,laboratory assessment, ultrasound Approved by Resident Parag Roche MD on 07/12/2024 9:36 PM IKevin MD have personally reviewed the image(s) and agreewith and/or edited the report Finalized by Kevin Diaz MD on 07/12/2024 9:56 PM us Karolina Astorga ER NURSE-DIGGING MACHINE OPERATOR IMG CT ORDERABLES Final Re sult * (ABNORMAL) POCT , urine (07/12/2024 8:15 PM EDT) POC Urine Positive(A ) Negative 07/12/2024 8:14 PM EDT [facility] Urine 07/12/2024 8:15 PM EDT 07/12/2024 8:14 PM EDT us Stormy Solano DO POINT OF CARE TEST ORDERABLE S Final Result [facility] [address] [place] [address], * (ABNORMAL) POCT Nursing Urine Macroscopic UA (07/12/2024 8:13 PM EDT) POC Urine Specific [place] >=1.030(A) 1.010, 1.015, 1.020, 1.025 07/12/2024 8:09 PM EDT [facility] POC Urine Leukocyte Esterase Small(A) Negative 07/12/2024 8:09 PM EDT [facility] POC Urine Nitrite Negative Negative 07/12/2024 8:09 PM EDT [facility] POC Urine pH 6.0 5.0, 6.0, 6.5, 7.0, 7.5, 8.0, 8.5, 5.5 07/12/2024 8:09 PM EDT [facility] POC Urine Protein Negative Negative 07/12/2024 8:09 PM EDT [facility] Urine Glucose Negative Negative 07/12/2024 8:09 PM EDT [facility] Urine Ketones Negative Negative 07/12/2024 8:09 PM EDT [facility] Urine Urobilinogen 0.2 E.U./dL 07/12/2024 8:09 PM EDT [facility] Urine Bilirubin Negative Negative 07/12/2024 8:09 PM EDT [facility] POC Urine Blood/HGB Moderate(A) Negative 07/12/2024 8:09 PM EDT [facility] Urine 07/12/2024 8:13 PM EDT 07/12/2024 8:09 PM EDT us Stormy Solano DO POINT OF CARE TEST ORDERABLE S Final Result Performing Organization Address City/[facility]/ZIP Co de Phone Number [address] [place] [address], [place] * Extra Urine Culture (07/12/2024 8:04 PM EDT) Extra Tube Auto Resulted 07/12/2024 10:01 PM EDT [facility] Urine Urine specimen collection, clean catch / Unknown 07/12/2024 8:04 PM EDT 07/12/2024 8:14 PM EDT us Karolina Astorga ER NURSE-DIGGING MACHINE OPERATOR URINE ORDERABLES Final Res ult Performing Organization Address City/[facility]/ZIP Co de Phone Number [address] [place] [address], [place] * Extra Urine (07/12/2024 8:04 PM EDT) Only the most recent of2 resultswithin the time period is included. Extra Tube Auto Resulted 07/12/2024 10:01 PM EDT [facility] Urine Urine specimen collection, clean catch / Unknown 07/12/2024 8:04 PM EDT 07/12/2024 8:14 PM EDT us Karolina Astorga ER NURSE-DIGGING MACHINE OPERATOR URINE ORDERABLES Final Res ult Performing Organization Address [facility]/ZIP Co de Phone Number [address] [place] [address], [place] * Lactate w/ Reflex (07/12/2024 7:53 PM EDT) LACTATE W/REFLEX 1.1 0.4 - 2.0 mmol/L 07/12/2024 8:22 PM EDT [facility] Blood Venous blood / Unknown Venipuncture / Unknown 07/12/2024 7:53 PM EDT 07/12/2024 8:04 PM EDT Narrative [facility] - 07/12/2024 8:22 PM EDT Result did not trigger repeat Lactate, re-order if needed. us Karolina Astorga ER NURSE-DIGGING MACHINE OPERATOR LAB BLOOD ORDERABLES Final Result Performing Organization Address [facility] Co de Phone Number [address] [place] [address], [place] * Light Blue Top (07/12/2024 7:53 PM EDT) Extra Tube Auto Resulted 07/12/2024 9:01 PM EDT [facility] Blood Venous blood / Unknown Venipuncture / Unknown 07/12/2024 7:53 PM EDT 07/12/2024 8:02 PM EDT us Stormy Solano DO LAB BLOOD ORDERABLES Final R esult Performing Organization Address City/[facility] Co de Phone Number [address] [place] [address], [place] * (ABNORMAL) CBC without diff (06/28/2024 11:41 PM EDT) WBC 10.8 4 - 11 x10E9/L 06/28/2024 11:49 PM EDT [facility] RBC Count 2.93(L) 3.8 - 5.2 X10E12/L 06/28/2024 11:49 PM EDT [facility] Hemoglobin 8.9(L) 11.7 - 15.5 g/dL 06/28/2024 11:49 PM EDT [facility] Hematocrit 25.4(L) 35 - 47 % 06/28/2024 11:49 PM EDT [facility] MCV 87 80 - 100 fL 06/28/2024 11:49 PM EDT [facility] MCH 30.2 27 - 34 pg 06/28/2024 11:49 PM EDT [facility] MCHC 34.9 32 - 36 g/dL 06/28/2024 11:49 PM EDT [facility] RDW 13.5 11.5 - 15 % 06/28/2024 11:49 PM EDT [facility] Platelet Count 241 150 - 450 X10E9/L 06/28/2024 11:49 PM EDT [facility] MPV 7.7 7 - 12 fL 06/28/2024 11:49 PM EDT [facility] Blood Venous blood / Unknown 06/28/2024 11:41 PM EDT 06/28/2024 11:44 PM EDT us Jesenia Varela DO LAB BLOOD ORDERABLES Final Res ult [facility] [address] [place] [address]. [place] [address], * Transfuse RBC:1 Unit (06/28/2024 10:07 PM EDT) us Cherelle Joy ER NURSE-DIGGING MACHINE OPERATOR BLOOD TRANSFUSION ORDE RABLES Final Result * Light Blue Top (06/28/2024 4:52 PM EDT) Extra Tube Auto Resulted 06/28/2024 6:02 PM EDT [facility] Blood Venous blood / Unknown Venipuncture / Unknown 06/28/2024 4:52 PM EDT 06/28/2024 5:18 PM EDT us Mayela Fierro MD LAB BLOOD ORDERABLES Final Result [address] [place] [address], [place] * Type and screen(includes indirect noni) (06/28/2024 4:52 PM EDT) ABO O 06/28/2024 6:17 PM EDT [facility] RH Positive 06/28/2024 6:17 PM EDT [facility] Antibody Screen Negative 06/28/2024 6:17 PM EDT [facility] Blood Venous blood / Unknown Venipuncture / Unknown 06/28/2024 4:52 PM EDT 06/28/2024 5:16 PM EDT us Cherelle Joy ER NURSE-DIGGING MACHINE OPERATOR BLOOD BANK TEST ORDERA BLES Edited Result - Final Performing Organization Address City/[facility]/ZIP Co de Phone Number [facility] [address] [place] [address] [place] [address], [address] [place] [address], * Crossmatch RBC:Number of Units: 1 (06/28/2024 4:30 PM EDT) Blood component type [id number] [facility] Unit number [id number] [facility] Unit ABO O [facility] Unit RH POS [facility] Crossmatch Compatible [facility] Status of unit TRANSFUSED [facility] Expiration Date [id number] [facility] BB Type Barcode 5100 [facility] Blood Venous blood / Unknown 06/28/2024 4:30 PM EDT 06/28/2024 6:12 PM EDT Cherelle Joy ER NURSE-DIGGING MACHINE OPERATOR BLOOD BANK PRODUCT ORD ERABLES Edited Result - Final Performing Organization Address City/[facility]/ZIP Co de Phone Number [address] [place] [address], [place] * (ABNORMAL) Microscopic, urine (06/28/2024 7:48 AM EDT) R.B.CELLS >100(H) 0 - 5 06/28/2024 8:12 AM EDT [facility] W.B.CELLS 0 0 - 5 06/28/2024 8:12 AM EDT [facility] Urine Urine specimen collection, clean catch / Unknown Collection / Unknown 06/28/2024 7:48 AM EDT 06/28/2024 7:53 AM EDT Narrative [facility] - 06/28/2024 8:12 AM EDT Results may be affected due to high RBC count, interpret with caution.Urine received without preservative - delays in transport may affect results. Interpret with caution and clinical correlation is recommended. Parag Gasca DO URINE ORDERABLES Final Result Performing Organization Address [facility] Co de Phone Number [address] [place] [address], [place] * Ultrasound less than 14 weeks with transvaginal (06/28/2024 7:08 AM EDT) Anatomical Region Laterality Modality OB-RVDA MASTER CERTIFIED RV TECHNICIAN Ultrasound 06/28/2024 7:26 AM EDT Narrative 06/28/2024 7:32 AM EDT US PREG LESS THAN 14 WKS WITH TRANSVAGINAL HISTORY: Encounter for supervision of normal in first trimester. Dating. Viability. Heavy vaginal bleeding with large clots, decreasing beta hCG, last menstrual period 03/19/2024. Beta hCG currently 2103, previously 6161 (05/04/2024). COMPARISON: Obstetric ultrasound 10/01/2023. TECHNIQUE: Early obstetric ultrasound utilizing transabdominal and transvaginal imaging. Transabdominal imaging performed to evaluate for extra adnexal pelvic pathology. Transvaginal imaging performed for better delineation of the adnexal and endometrial contents. Grayscale and color Doppler used. FINDINGS: The uterus measures approximately 16.1 x 7.3 x 7.2 cm. There is no evidence of free fluid in the pelvic cul-de-sac. No embryo is seen and it is >=6 weeks from the patient?s last menstrual period (LMP). The right ovary measures 3.2 x 2.0 x 2.1 cm. Color Doppler demonstrates normal blood flow. Corpus luteum in the right ovary measures 1.4 x 1.3 x 1.2 cm. The left ovary measures 2.9 x 3.6 x 2.6 cm. Color Doppler demonstrates normal blood flow. IMPRESSION: No embryo is seen >=6 weeks after the LMP, which is suspicious for, but not diagnostic of, failure vs. of unknown location. Recommend correlation with hCG levels and follow-up ultrasound in 7-10 days, if inconclusive. Hiram PM, et al. Diagnostic Criteria for Nonviable Early in the First Trimester. N Engl J Med. 2012Nov 27;369(15):1443-48. Approved by Resident Vince Anderson MD on 06/28/2024 7:26 AM IKevin MD have personally reviewed the image(s) and agree with and/or edited the report Finalized by Kevin Henderson MD on 06/28/2024 7:32 AM Procedure Note Kevin Henderson MD - 06/28/2024 US PREG LESS THAN 14 WKS WITH TRANSVAGINAL HISTORY: Encounter for supervision of normal in first trimester.Dating. Viability. Heavy vaginal bleeding with large clots, decreasingbeta hCG, last menstrual period 03/19/2024. Beta hCG currently 2103,previously 6161 (05/04/2024). COMPARISON: Obstetric ultrasound 10/01/2023. TECHNIQUE: Early obstetric ultrasound utilizing transabdominal andtransvaginal imaging. Transabdominal imaging performed to evaluate forextra adnexal pelvic pathology. Transvaginal imaging performed for betterdelineation of the adnexal and endometrial contents. Grayscale and colorDoppler used. FINDINGS: The uterus measures approximately 16.1 x 7.3 x 7.2 cm. There is noevidence of free fluid in the pelvic cul-de-sac. No embryo is seen and itis >=6 weeks from the patient?s last menstrual period (LMP). The right ovary measures 3.2 x 2.0 x 2.1 cm. Color Doppler demonstratesnormal blood flow. Corpus luteum in the right ovary measures 1.4 x 1.3 x1.2 cm. The left ovary measures 2.9 x 3.6 x 2.6 cm. Color Doppler demonstratesnormal blood flow. IMPRESSION: No embryo is seen >=6 weeks after the LMP, which is suspicious for, butnot diagnostic of, failure vs. of unknown location.Recommend correlation with hCG levels and follow-up ultrasound in 7-10days, if inconclusive. Hiram PM, et al. Diagnostic Criteria for Nonviable Early inthe First Trimester. N Engl J Med. 2013 Nov 27;369(15):1443-51. Approved by Resident Vince Anderson MD on 06/28/2024 7:26 AM I, Kevin Henderson MD have personally reviewed the image(s) and agree withand/or edited the report Finalized by Kevin Henderson MD on 06/28/2024 7:32 AM us Parag Gasca DO IMG US ORDERABLES Final Result * APTT (06/28/2024 5:12 AM EDT) APTT 33 26 - 37 sec 06/28/2024 5:26 AM EDT [facility] Blood Venous blood / Unknown 06/28/2024 5:12 AM EDT 06/28/2024 5:16 AM EDT us Parag Gasca DO LAB BLOOD ORDERABLES Final Resul t [facility] [address] [place] [address], [place] * Protime & INR (06/28/2024 5:12 AM EDT) PROTIME 11.0 9.8 - 13.2 sec 06/28/2024 5:26 AM EDT [facility] INR 1.0 0.9 - 1.2 06/28/2024 5:26 AM EDT [facility] Blood Venous blood / Unknown 06/28/2024 5:12 AM EDT 06/28/2024 5:16 AM EDT us [facility] DO LAB BLOOD ORDERABLES Final Resul t [facility] [address] [place] [address], * Pap Smear (04/23/2023 5:03 AM EST) 04/23/2023 5:03 AM EST 04/23/2023 7:52 AM EST Narrative [facility] - 05/05/2023 2:36 PM EDT [facility] [address] [place] [address] Gynecologic Cytology Consultation Patient Name:BELEM MARIE:2000 (Age: 23)Gender:FTaken:4Reported:4Physician(s):Ruth Benavides APRN- CNPCopy To: Rec. #:[id number]: #[id number] Final Cytologic Interpretation ThinPrep Pap Test (Cervical): Satisfactory for evaluation. A transformation zone component was not noted. NEGATIVE FOR INTRAEPITHELIAL LESION OR MALIGNANCY. lrd/05/05/2023 Interpretation performed at [facility], [address] [place] [address], License number: [id number]. Electronically Signed Out By TIARRA Lamb, (ASCP) Date of Last Menstrual Period: 01/22/23 Other Clinical Conditions: Clinical History: Z01.419 Business Resiliency Manager exam wo/abn findings Source of Specimen ThinPrep Pap Test (Cervical) Thin Prep Pap (RVDA MASTER CERTIFIED RV TECHNICIAN) Fee Code(s): G0145 us Ruth Cody ER NURSE-DIGGING MACHINE OPERATOR PATHOLOGY/CYTOLOGY ORDER DINO Final Result [facility] from Last 3 Months or Most Recently Relevant to Health Maintenance Insurance [facility] MEDICAID Advance Directives * Full Code (Latest Code Status on File) Date Activated Date Inactivated Comments 06/29/2024 8:07 AM 06/29/2024 4:09 PM * Full Code Date Activated Date Inactivated Comments 10/24/2023 6:31 PM 10/27/2023 3:37 PM * Full Code Date Activated Date Inactivated Comments 08/29/2023 6:53 PM 08/29/2023 9:17 PM * Full Code Date Activated Date Inactivated Comments 12/05/2020 4:57 PM 12/07/2020 8:03 PM * Full Code Date Activated Date Inactivated Comments 10/25/2020 5:42 PM 10/25/2020 11:15 PM Care Teams Technology Sales Representative Relationship Specialty Start Date End Date No Pcp, [place] [address] PCP - General Family Medicine 08/12/24
--- OUTSIDE RECORDS SUMMARY | 2024-08-22 00:11 | XMS_ITS | Encounter Summary ---
Author Organization [employer] Address [id number] [address] [place] [address] Care Team Providers Care Cd Technician Name Role Phone No Pcp, No Pcp Primary Care Provider Unavailabl e Reason for Visit * Reason Onset Date Comments orders 08/20/2024 Encounter Details Date Type Department Care Team ([facility] st Contact Info) Description 08/20/2024 Telephone [facility] [address] [place] [id number] Sara Quiroz, RN orders Social History Tobacco Use Types Packs/Day Years Used Date Smoking Tobacco: Never Smokeless Tobacco: Never Alcohol Use Standard Drinks/Week Comments No 0 (1 standard drink = 0.6 oz pur e alcohol) [facility] Utilities Answer Date Recorded In the past 12 months has e electric, gas, oil, or water company [...] things needed for daily living? No 06/28/2024 [place] Depression Scale Answer Date Recorded [place] Depression Scale Total 9 12/05/2023 The thought [...] encounter Miscellaneous Notes * Telephone Encounter - Sara Quiroz RN - 08/20/2024 2:51 PM EDT Contract: [address] [place] [address] lab calling pt supposed to get weekly draws and does not have an order for it today. HCG. * Telephone Encounter - Sara Quiroz RN - 08/20/2024 2:51 PM EDT Called Klever Pandya MD on cell transferred to [facility] documented in this encounter Plan of Treatment Upcoming Encounters Date Type Department Care Team (Late st Contact Info) Description 10/01/2024 1:00 PM EDT Office Visit [facility] Internal Medicine - Family Medicine [address] [place] [address] Toña Jackson, CHIEF NURSE EXECUTIVE-EQUIPMENT PROCESSER STORAGE [address] [place] [address] documented as of this encounter Visit Diagnoses Not on filedocumented in this encounter Additional Health Concerns Assessment Noted Time PHQ-9 Depression Total Score: 0 02/07/20 24 2:42 PM EST documented as of this encounter Care Teams Cd Technician Relationship Specialty Start Date End Date No Pcp, [place] [address] PCP - General Family Medicine 08/12/24 documented as of this encounter
--- OUTSIDE RECORDS SUMMARY | 2024-08-22 00:11 | XMS_ITS | Encounter Summary ---
Author Organization [employer] Address [id number] [address] [place] [address] Care Team Providers Care Planer Operator / Grader Name Role Phone Unavailable Primary Care Provider Unavailabl e Reason for Referral * Consultation (Routine) - Pending Review Specialty Diagnoses / Procedures Referred By Philipp t Referred To Contact Diagnoses Does not have primary care provider Selene Downey MD [address] [facility] [address] Phone: tel: fax: Referral ID Status Reason Start Date Expiration Date V isits Requested Visits Authorized [id number] Pending Review 08/11/2024 08/11/2025 1 1 Encounter Details Date Type Department Care Team (Late st Contact Info) Description 08/11/2024 Orders Only [facility] Obstetrics/Gynecology [address] [place] [phone] Georgina Olivo CMA Does not have primary care provider (Primary Dx); SAB (spontaneous ) Social History Tobacco Use Types Packs/Day Years Used Date Smoking Tobacco: Never Smokeless Tobacco: Never Alcohol Use Standard Drinks/Week Comments No 0 (1 standard drink = 0.6 oz pur e alcohol) [facility] Utilities Answer Date Recorded In the [...] things needed for daily living? No 06/28/2024 [place] Depression Scale Answer Date Recorded [place] Depression Scale Total 9 12/05/2023 The thought [...] on file documented as of this encounter Progress Notes * Georgina Olivo CMA - 08/11/2024 3:31 PM EDT Pt called with concerns of needing a repeat Beta or ultrasound done to follow up from [facility]. Pt was seen in ED a few times and last beta was in the 80s. Per verbal from cedrick Felix to order Beta HCG for pt. documented in this encounter Plan of Treatment Upcoming Encounters Date Type Department Care Team (Late st Contact Info) Description 10/01/2024 1:00 PM EDT Office Visit [facility] Internal Medicine - Family Medicine [address] [place] [address] Toña Jackson, EMPLOYEE TRAINING SPECIALIST-STONE LATHE OPERATOR [address] [place] [address] Scheduled Referrals Name Type Priority Associated Diagnoses Order Schedule Ambulatory Referral to [facility] Primary Care Outpatient Referral Routine Does not have primary care provider 1 Occurrences starting 08/11/2024 until 08/11/2025 documented as of this encounter Results * hCG, quantitative, (08/12/2024 1:31 PM EDT) SERUM B HCG,3RD I.S. 17 mIU/mL 08/12/2024 6:23 PM EDT [facility] Blood Venous blood / Unknown Venipuncture / Unknown 08/12/2024 1:31 PM EDT 08/12/2024 1:31 PM EDT Narrative [facility] - 08/12/2024 6:23 PM EDT WEEKS (SINCE LMP) MIU/mL 3 [...] diagnostic for trophoblastic or nontrophoblastic neoplasms. us Selene Downey MD LAB BLOOD ORDERABLES Final Res ult [facility] [address] [place] [address], documented in this encounter Visit Diagnoses Diagnosis Does not have primary care provider- Primary SAB (spontaneous ) Unspecified spontaneous without mention of complication documented in this encounter Additional Health Concerns Assessment Noted Time PHQ-9 Depression Total Score: 0 02/07/20 24 2:42 PM EST documented as of this encounter
--- OUTSIDE RECORDS SUMMARY | 2024-08-22 00:11 | XMS_ITS | Encounter Summary ---
Author Organization [employer] tem Address [id number] [address] [place] [address] Care Team Providers Care Heating Worker Name Role Phone No Pcp, No Pcp Primary Care Provider Unavailabl e Encounter Details Date Type Department Care Team ([facility] Contact Info) Description 05/13/2020 Telephone [facility] Obstetrics/Gynecology [address] [place] [place] [phone] Soheila Mosley MA Social History Tobacco Use Types Packs/Day Years Used Date Smoking Tobacco: Passive Smo ke Exposure - Never Smoker Smokeless Tobacco: Never Alcohol Use Standard Drinks/Week [...] or suspected to have Coronavirus / COVID-19? No / Unsure 05/16/2020 1:40 PM EDT documented as of this encounter Miscellaneous Notes * Telephone Encounter - Soheila Mosley MA - 05/13/2020 11:14 AM EDT Called patient to get her R/S for her missed Initial appt that was scheduled for today. Left VM for patient to call office to R/S Soheila Mosley MA 05/13/20 1115 documented in this encounter Plan of Treatment Upcoming Encounters Date Type Department Care Team (Late st Contact Info) Description 10/01/2024 1:00 PM EDT Office Visit [facility] Internal Medicine - Family Medicine [address] [place] [address] Toña Jackson APRN-STAFFING AND SCHEDULING COORDINATOR [address] [facility] [place] [address] documented as of this encounter Visit Diagnoses Not on filedocumented in this encounter Additional Health Concerns Infection Onset Date Last Indicated Resolved Time COVID-19 Rule-Out 10/25/2020 10/25/2020 10/25/2020 4:42 PM EDT COVID-19 Positive 10/25/2020 10/25/2020 11/15/2020 11:13 PM EDT COVID-19 Rule-Out 06/16/2023 06/16/2023 06/16/2023 10:26 AM EDT Assessment Noted Time PHQ-9 Depression Total Score: 3 01/03/20 18 9:11 AM EST documented as of this encounter Care Teams Heating Worker Relationship Specialty Start Date End Date No Pcp, [place] [address] PCP - General Family Medicine 08/12/24 documented as of this encounter
--- OUTSIDE RECORDS SUMMARY | 2024-08-22 00:11 | XMS_ITS | Encounter Summary ---
Author Organization [facility] Address [id number] [address] [place] [address] Care Team Providers Care Polls Or Surveys Interviewer Name Role Phone No Pcp, No Pcp Primary Care Provider Unavailabl e Encounter Details Date Type Department Care Team (Late Contact Info) Description 06/10/2019 Telephone Maternal- Medicine at [facility] [address] [facility] [place] [phone] Dami Sosa MD [address] [place] [address] Social History Tobacco Use Types Packs/Day Years Used Date Smoking Tobacco: Never Smokeless Tobacco: Never Alcohol Use Standard Drinks/Week Comments No 0 (1 standard drink = 0.6 oz pur e alcohol) PHQ-2 Answer Date Recorded Total Score 3 01/02/2018 Childcare Answer Date Recorded Childcare Unknown 07/30/2018 Employment Answer Date Recorded Employment Unknown 07/30/2018 Comments Yes Sex and Gender Information Value [...] have Coronavirus / COVID-19? No / Unsure 06/10/2019 1:36 PM EDT documented as of this encounter Plan of Treatment Upcoming Encounters Date Type Department Care Team (Late Contact Info) Description 10/01/2024 1:00 PM EDT Office Visit [facility] Internal Medicine - Family Medicine [address] [place] [address] Toña Jackson, HEAD TRIMMER-IT SERVICE TECHNICIAN [address] [place] [address] documented as of this encounter Visit Diagnoses Not on filedocumented in this encounter Additional Health Concerns Infection Onset Date Last Indicated Resolved Time Respiratory Rule-Out 02/01/2020 02/01/2020 020 3:14 AM EST COVID-19 Rule-Out 10/25/2020 10/25/2020 10/25/2020 4:42 PM EDT COVID-19 Positive 10/25/2020 10/25/2020 11/15/2020 11:13 PM EDT COVID-19 Rule-Out 06/16/2023 06/16/2023 06/16/2023 10:26 AM EDT Assessment Noted Time PHQ-9 Depression Total Score: 3 01/03/20 18 9:11 AM EST documented as of this encounter Care Teams Polls Or Surveys Interviewer Relationship Specialty Start Date End Date No Pcp, [place] [address] PCP - General Family Medicine 08/12/24 documented as of this encounter
--- OUTSIDE RECORDS SUMMARY | 2024-08-22 00:11 | XMS_ITS | Encounter Summary ---
Author Organization [employer] Address [id number] [address] [place] [address] Care Team Providers Care Radiator Repairer Name Role Phone No Pcp, No Pcp Primary Care Provider Unavailabl e Encounter Details Date Type Department Care Team (Latest Contact Info) Description 08/20/2024 Travel Social History Tobacco Use Types Packs/Day Years Used Date Smoking Tobacco: Never Smokeless Tobacco: Never Alcohol Use Standard Drinks/Week Comments No 0 (1 standard drink = 0.6 oz pur e alcohol) [facility] Utilities Answer Date Recorded In the [...] things needed for daily living? No 06/28/2024 [place] Depression Scale Answer Date Recorded [place] Depression Scale Total 9 12/05/2023 The thought [...] Medicine - Family Medicine [address] [place] [address] Toña Jackson, PRICE CLERK-EIGHT SECTION BLOWER [address] [place] [address] documented as of this encounter Visit Diagnoses Not on filedocumented in this encounter Additional Health Concerns Assessment Noted Time PHQ-9 Depression Total Score: 0 02/07/20 24 2:42 PM EST documented as of this encounter Care Teams Radiator Repairer Relationship Specialty Start Date End Date No Pcp, [place] [address] PCP - General Family Medicine 08/12/24 documented as of this encounter
--- NOTE | 2024-08-22 01:07 | ED_ITS ---
HPI - Female Genitourinary General Chief complaint: Vaginal Bleeding Stated complaint: VAGINAL BLEEDING Time Seen by Provider: 08/22/24 01:00 Source: patient Mode of arrival: walk-in History of Present Illness HPI Narrative: patient describes miscarriage 06/28/24. Admitted by her OB at [facility]. describes consideration of D and C but states she was treated with medication that slowed the bleeding down and the D and C was not performed. States she continues to have vagina bleeding. Tonight she felt lightheaded and has right CVA pain. No fever or urinary symptoms Related Data Home Medications �Medication �Instructions �Recorded �Confirmed No Known Home Medications 08/22/24 0707/12 Allergies Allergy/AdvReac Type Severity Reaction Status Date / Time Penicillins Allergy Swelling Verified 08/22/24 00:09 of Lip/Tongue/Throat Review of Systems ROS Status of ROS 10 or more systems reviewed and unremark able except as noted in history and below PFSH PFSH Social History Little interest or pleasure in doing things: not at all Feeling down, depressed, or hopeless: not at all Exam Constitutional Vital Signs, click to edit/add: Last Vital Signs Temp 98.3 F 08/22/24 00:09 Pulse 72 08/22/24 01:15 Resp 20 08/22/24 00:09 BP 123/70 08/22/24 01:15 Pulse Ox 100 08/22/24 00:09 O2 Del Method Room Air 08/22/24 00:09 Common normals: no apparent distress, average body habitus, oriented x3, no limitations, healthy appearing and alert [facility] Common normals: normocephalic and head/scalp atraumatic Eye Common normals: EOMs intact bilaterally and conjunctivae normal Respiratory Common normals: normal respiratory effort, no retractions, no use of accessory muscles and clear to auscultation bilaterally Cardio Common normals: regular rate, regular rhythm, S1 normal heart sound and S2 normal heart sound GI Common normals: Normal to inspection, nondistended, normoactive bowel sounds present, soft to palpation and non-tender Other: normal external exam normal appearing cervix. minimal blood in the vault. No acitve bleeding. Back & Pelvis General back: CVA tenderness CVA tenderness: right (mild) Extremity Common normals: normal to inspection and full ROM Neuro Common normals: oriented x3, CN's II-XII intact bilaterally, moves all extremities and no focal motor deficits Psych Appearance: grossly normal Course Vital Signs Vital signs: Vital Signs Temperature 98.3 F 08/22/24 00:09 Pulse Rate 78 08/22/24 00:09 Respiratory Rate 08/22/24 00:09 Blood Pressure 113/83 08/22/24 00:09 Pulse Oximetry 100 08/22/24 00:09 Oxygen Delivery Method Room Air 08/22/24 00:09 Temperature 98.3 F 08/22/24 00:09 Pulse Rate 72 08/22/24 01:15 Respiratory Rate 08/22/24 00:09 Blood Pressure 123/70 08/22/24 01:15 Pulse Oximetry 100 08/22/24 00:09 Oxygen Delivery Method Room Air 08/22/24 00:09 MDM - Female Genitourinary Lab Data Labs: Lab Results 08/22/24 08/22/24 Range/Units 01:20 01:45 WBC 6.9 (4.0-11.0) 10^3/uL RBC 3.77 L (4.20-5.40) 10^6/uL Hgb 9.7 L (12.0-16.0) g/dL Hct 31.4 L (36.0-48.0) % MCV 83.3 (81.0-99.0) fL MCH 25.7 L (26.7-34.0) pg MCHC 30.9 (29.9-35.2) g/dL RDW 13.7 (11.0-15.0) % Plt Count 340 (150-450) 10^3/uL MPV 10.0 (9.5-13.5) fL Neut % (Auto) 60.8 (43.0-75.0) % Lymph % (Auto) 31.4 (20.5-60.0) % Preston % (Auto) 5.8 (1.7-12.0) % Eos % (Auto) 1.3 (0.9-7.0) % Baso % (Auto) 0.6 (0.2-2.0) % Neut # (Auto) 4.2 (1.4-6.5) 10^3/uL Lymph # (Auto) 2.2 (1.2-3.8) 10^3/uL Preston # (Auto) 0.4 (0.3-0.8) 10^3/uL Eos # (Auto) 0.1 (0.0-0.7) 10^3/uL Baso # (Auto) 0.0 (0.0-0.1) 10^3/uL Abs Immat Gran (auto) 0.01 (0.00-0.03) 10^3/uL Imm/Tot Granulo (auto) 0.1 (0.0-0.5) % Sodium 142 (136-145) mmol/L Potassium 3.6 (3.5-5.1) mmol/L Chloride 105 (98-107) mmol/L Carbon Dioxide 28.1 (21.0-32.0) mmol/L Anion Gap 12.5 BUN 14.0 (7.0-18.0) mg/dL Creatinine 0.63 (0.55-1.02) mg/dL Est GFR ( Amer) >60 (>=60 mL/min/1.73m^2) Est GFR (Non-Af Amer) >60 (>=60 mL/min/1.73m^2) BUN/Creatinine Ratio 22.2 Glucose 95 (74-106) mg/dL Calcium 8.7 (8.5-10.1) mg/dL HCG, Quant 8 mIU/mL Urine Color Yellow (YELLOW) Urine Clarity Clear (CLEAR) Urine pH 6.0 (5.0-9.0) Ur Specific [place] >=1.030 A (1.005-1.025) Urine Protein Negative (NEG/TRACE) mg/dL Urine Glucose (UA) Negative (NEGATIVE) mg/dL Urine Ketones Negative (NEGATIVE) mg/dL Urine Occult Blood Moderate A (NEGATIVE) Urine Nitrite Negative (NEGATIVE) Urine Bilirubin Negative (NEGATIVE) Urine Urobilinogen 0.2 (0.2-1.0) EU/dL Ur Leukocyte Esterase Negative (NEGATIVE) Urine RBC None seen (0-2) #/HPF Urine WBC 0-2 A (NONE SEEN) #/HPF Ur Squamous Epith Cells Moderate A (NONE/RARE) #/LPF Urine Crystals None seen (None Seen) #/HPF Urine Bacteria Trace A (NONE SEEN) #/HPF Urine Casts None seen (NONE SEEN) #/LPF Urine Mucus Moderate A (NONE SEEN) Ur Culture Indicated? No Discharge Plan Discharge Chief Complaint: Vaginal Bleeding Clinical Impression: Vaginal bleeding, Anemia Patient Disposition: Home, Self-Care Condition: Good Mode of Transportation: Private Vehicle Prescriptions / Home Meds: No Action No Known Home Medications Print Language: Latvian Instructions: Abnormal (Dysfunctional) Uterine Bleeding (ED), Anemia (ED) Additional Instructions: follow up with your OB physician next week for recheck. Drink plenty of fluids Referrals: Physician,Non-Staff, MD [Primary Care Provider] - 1 week Discharge Date/Time: 08/22/24 02:48
[2024-08-22 01:15] VITALS: BP 123/70; BP 127/82; BP 129/100; PULSE 70; PULSE 72; PULSE 76
[2024-08-22 01:31] LABS: Hematocrit 31.4 % (36.0-48.0); Hemoglobin 9.7 g/dL (12.0-16.0); Immature Granulocytes Abs Auto 0.01 10^3/uL (0.00-0.03); Immature Granulocytes Pct Auto 0.1 % (0.0-0.5); Lymphocytes Absolute Auto 2.2 10^3/uL (1.2-3.8); Mean Corpuscular HGB Conc 30.9 g/dL (29.9-35.2); Mean Corpuscular Hemoglobin 25.7 pg (26.7-34.0); Mean Corpuscular Volume 83.3 fL (81.0-99.0); Platelet Count 340 10^3/uL (150-450); Red Blood Count 3.77 10^6/uL (4.20-5.40); White Blood Count 6.9 10^3/uL (4.0-11.0)
[2024-08-22 01:51] LABS: Anion Gap 12.5; Blood Urea Nitrogen 14.0 mg/dL (7.0-18.0); Calcium 8.7 mg/dL (8.5-10.1); Carbon Dioxide 28.1 mmol/L (21.0-32.0); Chloride 105 mmol/L (98-107); Estimated GFR (African America >60 (>=60 mL/min/1.73m^2); Estimated GFR (Non-African Ame >60 (>=60 mL/min/1.73m^2); Glucose 95 mg/dL (74-106); Potassium 3.6 mmol/L (3.5-5.1); Sodium 142 mmol/L (136-145)
[2024-08-22 02:05] LABS: Glucose Urine UA NEGATIVE (NEGATIVE)
[2024-08-22 02:12] LABS: Cast Seen? NONE SEEN #/LPF (NONE SEEN); Crystals Seen? None Seen #/HPF (None Seen); Urine Culture Indicated NO
== END 2024-08-22 02:48 | disposition home or self-care (01) ==
PROVIDERS: Emergency Provider Internal Medicine
DX: N93.9 Abnormal uterine and vaginal bleeding, unspecified (principal); D64.9 Anemia, unspecified
CPT/HCPCS: 36415; 80048; 81001; 84702; 85025; 99283